=== PATIENT | male | born 1975 | race Caucasian/White ===

== ENCOUNTER → 2017-11-19 | Outpatient (CLI) | payer BC | LOC: BHSO 08:56 | DX: F33.0 Major depressive disorder, recurrent, mild (principal) ==

== ENCOUNTER → 2017-11-28 | Outpatient (CLI) | payer BC | LOC: BHSO 08:59 | DX: F41.1 Generalized anxiety disorder (principal) ==

== ENCOUNTER → 2017-12-05 | Outpatient (CLI) | payer BC | LOC: BHSO 13:03 | DX: F41.8 Other specified anxiety disorders (principal) ==

== ENCOUNTER → 2017-12-12 | Outpatient (CLI) | payer BC | LOC: BHSO 12:58 | DX: F41.8 Other specified anxiety disorders (principal) ==

== ENCOUNTER → 2017-12-19 | Outpatient (CLI) | payer BC | LOC: BHSO 12:57 | DX: F41.1 Generalized anxiety disorder (principal) ==

== ENCOUNTER → 2017-12-25 | Outpatient (CLI) | payer BC | LOC: BHSO 13:04 | DX: F41.8 Other specified anxiety disorders (principal) ==

== ENCOUNTER → 2018-01-21 | Outpatient (CLI) | payer BC | LOC: BHSO 10:01 | DX: F33.0 Major depressive disorder, recurrent, mild (principal) ==

== ENCOUNTER → 2018-02-03 | Outpatient (CLI) | payer BC | LOC: BHSO 09:56 | DX: F41.1 Generalized anxiety disorder (principal) ==

== ENCOUNTER → 2018-02-17 | Outpatient (CLI) | payer BC | LOC: BHSO 09:55 | DX: F41.8 Other specified anxiety disorders (principal) ==

== ENCOUNTER → 2018-03-03 | Outpatient (CLI) | payer BC | LOC: BHSO 09:59 | DX: F41.1 Generalized anxiety disorder (principal) ==

== ENCOUNTER → 2018-03-12 | Outpatient (CLI) | payer BC | LOC: BHSO 10:54 | DX: F41.1 Generalized anxiety disorder (principal) ==

== ENCOUNTER → 2018-03-19 | Outpatient (CLI) | payer BC | LOC: BHSO 12:59 | DX: F41.1 Generalized anxiety disorder (principal) ==

== ENCOUNTER → 2018-04-02 | Outpatient (CLI) | payer BC | LOC: BHSO 12:58 | DX: F41.9 Anxiety disorder, unspecified (principal) ==

== ENCOUNTER → 2018-04-20 | Outpatient (CLI) | payer BC | LOC: BHSO 13:02 | DX: F41.9 Anxiety disorder, unspecified (principal) ==

== ENCOUNTER → 2018-04-29 | Outpatient (CLI) | payer BC | LOC: BHSO 11:00 | DX: F41.9 Anxiety disorder, unspecified (principal) ==

== ENCOUNTER → 2018-05-13 | Outpatient (CLI) | payer BC | LOC: BHSO 11:10 | DX: F41.9 Anxiety disorder, unspecified (principal) ==

== ENCOUNTER → 2018-05-27 | Outpatient (CLI) | payer BC | LOC: BHSO 10:57 | DX: F41.9 Anxiety disorder, unspecified (principal) ==

== ENCOUNTER → 2018-06-09 | Outpatient (CLI) | payer BC | LOC: BHSO 14:58 | DX: F41.9 Anxiety disorder, unspecified (principal) ==

== ENCOUNTER → 2018-06-24 | Outpatient (CLI) | payer BC | LOC: BHSO 15:01 | DX: F41.9 Anxiety disorder, unspecified (principal) ==

== ENCOUNTER → 2018-07-27 | Outpatient (CLI) | payer BC | LOC: BHSO 10:09 | DX: F41.8 Other specified anxiety disorders (principal) ==